=== PATIENT | female | born 1955 | race Caucasian/White ===

== ENCOUNTER 2016-05-29 20:09 | Emergency (ER) | payer MEDICAID, OTHER ==
[~2016-05-29] VITALS: Ht 167.6 cm; Wt 65.8 kg
[2016-05-29 21:03] VITALS: BP 177/83
== END 2016-05-29 21:42 | disposition home or self-care (01) ==
LOC: ER 20:09
DX: J18.9 Pneumonia, unspecified organism (principal); Z76.0 Encounter for issue of repeat prescription; I25.10 Atherosclerotic heart disease of native coronary artery without angina pectoris; I10 Essential (primary) hypertension; E07.9 Disorder of thyroid, unspecified; Z88.0 Allergy status to penicillin; Z88.1 Allergy status to other antibiotic agents; Z91.041 Radiographic dye allergy status

== ENCOUNTER 2017-02-10 16:42 | Emergency (ER) | payer MEDICAID ==
[~2017-02-10] VITALS: Ht 167.6 cm; Wt 63.5 kg
[2017-02-10 19:15] VITALS: BP 191/104
== END 2017-02-10 20:57 | disposition home or self-care (01) ==
LOC: ER 16:43
DX: J40 Bronchitis, not specified as acute or chronic (principal)
CPT/HCPCS: 71020

== ENCOUNTER 2017-05-22 11:50 | Inpatient (IN) | payer MEDICAID ==
[2017-05-22] VITALS (11 sets, daily range): BP systolic 111–130; BP diastolic 54–72
[~2017-05-22] VITALS: Ht 167.6 cm; Wt 65.5 kg
[2017-05-22 12:52] LABS: Basophils # (auto) 0.1 uL; Eosinophils # (auto) 0.1 uL; Monocytes # (auto) 0.6 uL
[2017-05-22 12:54] LABS: Basophils % (auto) 0.6 % (0.0-2.0); Eosinophils % (auto) 0.5 % (0.0-7.0); Hematocrit 21.2 % (36.0-46.0); Lymphocytes # (auto) 1.3 uL; Lymphocytes % (auto) 9.7 % (10.0-50.0); Mean Corpuscular Hemoglobin 29.1 pg (28.0-32.0); Mean Corpuscular Hgb Conc. 32.1 g/dL (32.0-36.0); Mean Corpuscular Volume 90.6 fL (80.0-100.0); Monocytes % (auto) 4.5 % (0.0-12.0); Neutrophils % (auto) 84.7 % (37.0-80.0); Platelet Count (auto) 392 10^3/uL (140-450); Red Blood Cells 2.34 10^6/uL (4.0-5.20); Red Cell Distribution Width 14.4 % (11.8-14.3)
[2017-05-22 12:59] LABS: Albumin 2.9 g/dL (3.4-5.0); BUN/Creatinine Ratio 60.5; Bilirubin, Total 0.2 mg/dL (0.2-1.0); Calcium 7.4 mg/dL (8.5-10.1); Magnesium 2.3 mg/dL (1.6-2.6); Total Protein 5.4 g/dL (6.4-8.2)
[2017-05-22 13:25] LABS: Hemoglobin 6.8 g/dL (12.2-16.2)
[2017-05-22] MEDS ORDERED: SODIUM CHLORIDE 0.9% 1,000 ML IVB ONE (13:42)
[2017-05-22 14:08] LABS: Magnesium 2.1 mg/dL (1.6-2.6)
[2017-05-22 14:17] LABS: Urine Bacteria NONE SEEN /hpf (None Seen); Urine Blood Negative /uL (Negative); Urine Specific Gravity 1.016 (1.001-1.035); Urine WBC 1 /hpf (0 - 5)
[2017-05-22 14:21] LABS: INR 0.94 (0.9-1.15); Partial Thromboplastin Time 22.9 sec (22.64-33.71); Prothrombin Time 10.2 sec (9.37-12.3)
[2017-05-22] MEDS ORDERED: PANTOPRAZOLE 80 MG in SODIUM CHL 0.9% 60 ML IV ONE (15:30)
[2017-05-22] MEDS: SODIUM CHLORIDE 0.9% 1,000 ML IV SCH (15:55)
[2017-05-22] MEDS ORDERED: MORPHINE SULFATE 4 MG/ML SYR/VIAL IV PRN ×2 (16:00)
[2017-05-22] MEDS ORDERED: ACETAMINOPHEN 500 MG TAB PO PRN (16:00)
[2017-05-22] MEDS ORDERED: PROMETHAZINE HCL 25 MG/ML 1ML IV PRN (16:00)
[2017-05-22] MEDS ORDERED: LORazepam 0.5 MG TAB PO PRN (16:00)
[2017-05-22] MEDS ORDERED: PANTOPRAZOLE 40 MG/10 ML VIAL IV ONE (16:00)
[2017-05-22] MEDS ORDERED: LACTULOSE 20Gm/30ML SOLN PO PRN (16:00)
[2017-05-22] MEDS ORDERED: NITROGLYCERIN 0.4 MG SL TAB SL PRN (16:00)
[2017-05-22] MEDS ORDERED: HYDROcodone-ACET 5/325MG TAB PO PRN (16:00)
[2017-05-22] MEDS ORDERED: CEFOTETAN 1GM/D5W 50ML BAG 50 ML IV ONE (16:15)
[2017-05-22 17:15] LABS: CRP High Sensitivity 0.04 mg/dL (< 0.3)
[2017-05-22 20:55] LABS: Alcohol, Urine < 3.0 mg/dL (0-5); Amphetamine Screen, Urine POSITIVE (NEGATIVE); Barbiturate Scree,Urine NEGATIVE (NEGATIVE); Benzodiazephine Screen, Urine NEGATIVE (NEGATIVE); Cannabinoid Screen, Urine NEGATIVE (NEGATIVE); Cocaine Screen, Urine NEGATIVE (NEGATIVE); Opiate Scree,Urine NEGATIVE (NEGATIVE); Phencyclidine Screen, Urine NEGATIVE (NEGATIVE)
[2017-05-22 21:41] LABS: Basophils # (auto) 0.1 uL; Eosinophils # (auto) 0.2 uL; Hematocrit 24.6 % (36.0-46.0); Lymphocytes # (auto) 1.9 uL; Monocytes # (auto) 0.5 uL
[2017-05-22 21:42] LABS: Basophils % (auto) 1.3 % (0.0-2.0); Eosinophils % (auto) 2.3 % (0.0-7.0); Hemoglobin 8.1 g/dL (12.2-16.2); Lymphocytes % (auto) 20.8 % (10.0-50.0); Mean Corpuscular Hgb Conc. 33.2 g/dL (32.0-36.0); Mean Corpuscular Volume 90.4 fL (80.0-100.0); Monocytes % (auto) 6.2 % (0.0-12.0); Neutrophils # (auto) 6.2 uL; Neutrophils % (auto) 69.4 % (37.0-80.0); Nucleated Red Blood Cells % 0.1 %; Platelet Count (auto) 307 10^3/uL (140-450); Red Blood Cells 2.72 10^6/uL (4.0-5.20); Red Cell Distribution Width 14.5 % (11.8-14.3); White Blood Cell 8.9 10^3/uL (4.4-10.8)
[2017-05-22] MEDS: cefTRIAXone 1GM/10ml IVPUSH 10 ML IV SCH (21:51)
[2017-05-22] MEDS: PANTOPRAZOLE 40 MG TAB PO SCH (21:59)
[2017-05-22] MEDS ORDERED: PANTOPRAZOLE 40 MG TAB PO SCH (22:00)
[2017-05-23] MEDS: TEMAZEPAM 15 MG CAP PO PRN (00:04)
[2017-05-23] MEDS: SODIUM CHLORIDE 0.9% 1,000 ML IV SCH ×3 (00:06→16:24)
[2017-05-23 00:52] LABS: Hemoglobin 8.1 g/dL (12.2-16.2)
[2017-05-23 00:54] LABS: Hematocrit 24.3 % (36.0-46.0)
[2017-05-23] MEDS ORDERED: NAP500T PO (03:22)
[2017-05-23] MEDS ORDERED: ASPI-231 PO (03:22)
[2017-05-23] MEDS ORDERED: METO-169 PO (03:22)
[2017-05-23 05:51] LABS: Basophils # (auto) 0.1 uL; Lymphocytes # (auto) 1.9 uL; Mean Corpuscular Volume 89.6 fL (80.0-100.0); Monocytes # (auto) 0.5 uL; Monocytes % (auto) 6.8 % (0.0-12.0); Red Cell Distribution Width 14.3 % (11.8-14.3)
[2017-05-23 05:53] VITALS: BP 100/52
[2017-05-23 05:54] LABS: Basophils % (auto) 0.9 % (0.0-2.0); Eosinophils # (auto) 0.3 uL; Eosinophils % (auto) 3.9 % (0.0-7.0); Hematocrit 23.4 % (36.0-46.0); Lymphocytes % (auto) 27.1 % (10.0-50.0); Mean Corpuscular Hemoglobin 30.4 pg (28.0-32.0); Neutrophils # (auto) 4.2 uL; Neutrophils % (auto) 61.3 % (37.0-80.0); Nucleated Red Blood Cells % 0.1 %; Platelet Count (auto) 286 10^3/uL (140-450); Red Blood Cells 2.61 10^6/uL (4.0-5.20); White Blood Cell 6.8 10^3/uL (4.4-10.8)
[2017-05-23 09:00] VITALS: BP 105/60
[2017-05-23] MEDS: PANTOPRAZOLE 40 MG TAB PO SCH ×2 (09:48→20:50)
[2017-05-23] MEDS ORDERED: CEFOTETAN 1GM/D5W 50ML BAG 50 ML IV SCH (10:00)
[2017-05-23 10:35] LABS: Carcinoembryonic Antigen < 0.50 ng/mL (<5.0 OR =)
[2017-05-23 10:36] LABS: Folate (Folic Acid) 7.15 ng/mL (5.38-24)
[2017-05-23 13:00] VITALS: BP 114/61
[2017-05-23 17:20] VITALS: BP 110/64
[2017-05-23] MEDS: cefTRIAXone 1GM/10ml IVPUSH 10 ML IV SCH (20:50)
[2017-05-23 22:00] VITALS: BP 111/61
[2017-05-24] MEDS: TEMAZEPAM 15 MG CAP PO PRN (00:01)
[2017-05-24] MEDS: SODIUM CHLORIDE 0.9% 1,000 ML IV SCH ×4 (00:02→23:55)
[2017-05-24 05:00] VITALS: BP 130/87
[2017-05-24 05:53] LABS: Basophils # (auto) 0.1 uL; Eosinophils # (auto) 0.3 uL; Hemoglobin 7.9 g/dL (12.2-16.2); Lymphocytes # (auto) 1.6 uL; Neutrophils # (auto) 2.9 uL; Nucleated Red Blood Cells % 0.1 %; White Blood Cell 5.3 10^3/uL (4.4-10.8)
[2017-05-24 05:57] LABS: Basophils % (auto) 1.4 % (0.0-2.0); Eosinophils % (auto) 6.3 % (0.0-7.0); Hematocrit 23.7 % (36.0-46.0); Mean Corpuscular Hemoglobin 30.1 pg (28.0-32.0); Mean Corpuscular Hgb Conc. 33.4 g/dL (32.0-36.0); Mean Corpuscular Volume 90.2 fL (80.0-100.0); Monocytes # (auto) 0.4 uL; Monocytes % (auto) 8.3 % (0.0-12.0); Platelet Count (auto) 308 10^3/uL (140-450); Red Blood Cells 2.63 10^6/uL (4.0-5.20); Red Cell Distribution Width 14.7 % (11.8-14.3)
[2017-05-24 06:37] LABS: Albumin 2.3 g/dL (3.4-5.0); BUN/Creatinine Ratio 10.2; Bilirubin, Total 0.3 mg/dL (0.2-1.0); Calcium 7.2 mg/dL (8.5-10.1); Magnesium 2.3 mg/dL (1.6-2.6); Potassium 3.7 mmol/L (3.5-5.1); Total Protein 4.5 g/dL (6.4-8.2)
[2017-05-24] MEDS: PANTOPRAZOLE 40 MG TAB PO SCH ×2 (09:41→20:07)
[2017-05-24] MEDS ORDERED: LIDOCAINE VISCOUS 2% 15ML UD ONE (09:51)
[2017-05-24] MEDS ORDERED: fentaNYL CITRATE 100 MCG/2 ML VL ONE (09:52)
[2017-05-24] MEDS ORDERED: diphenhdrAMINE HCL 50 MG/1 ML VL ONE (09:52)
[2017-05-24] MEDS ORDERED: MIDAZOLAM HCL 5 MG/ML-1ML VIAL ONE (09:52)
[2017-05-24] MEDS ORDERED: FLUMAZENIL 0.1 MG/ML INJ 10ML MDV IV ONE (09:53)
[2017-05-24] MEDS ORDERED: NALOXONE HCL 0.4 MG/ML VIAL ONE (09:53)
[2017-05-24 17:08] VITALS: BP 121/57
[2017-05-24] MEDS: cefTRIAXone 1GM/10ml IVPUSH 10 ML IV SCH (20:12)
[2017-05-24 22:31] VITALS: BP 118/62
[2017-05-25] VITALS (8 sets, daily range): BP systolic 123–137; BP diastolic 61–81
[2017-05-25 05:32] LABS: Basophils # (auto) 0.1 uL; Eosinophils # (auto) 0.3 uL; Hematocrit 26.2 % (36.0-46.0); Hemoglobin 8.6 g/dL (12.2-16.2); Lymphocytes # (auto) 1.5 uL; Lymphocytes % (auto) 22.4 % (10.0-50.0); Mean Corpuscular Hemoglobin 30.3 pg (28.0-32.0); Mean Corpuscular Hgb Conc. 32.7 g/dL (32.0-36.0); Mean Corpuscular Volume 92.5 fL (80.0-100.0); Monocytes # (auto) 0.7 uL; Monocytes % (auto) 9.9 % (0.0-12.0); Neutrophils # (auto) 4.1 uL; Neutrophils % (auto) 61.7 % (37.0-80.0); Nucleated Red Blood Cells % 0.1 %; Platelet Count (auto) 338 10^3/uL (140-450); Red Blood Cells 2.83 10^6/uL (4.0-5.20); Red Cell Distribution Width 15.3 % (11.8-14.3); White Blood Cell 6.6 10^3/uL (4.4-10.8)
[2017-05-25 06:09] LABS: Albumin 2.4 g/dL (3.4-5.0); BUN/Creatinine Ratio 12.5; Bilirubin, Total 0.2 mg/dL (0.2-1.0); Calcium 7.5 mg/dL (8.5-10.1); Potassium 4.1 mmol/L (3.5-5.1); Total Protein 4.9 g/dL (6.4-8.2)
[2017-05-25] MEDS ORDERED: MORPHINE SULFATE 4 MG/ML SYR/VIAL IV PRN (09:45)
[2017-05-25] MEDS: PANTOPRAZOLE 40 MG TAB PO SCH ×2 (10:26→21:59)
[2017-05-25] MEDS: SODIUM CHLORIDE 0.9% 1,000 ML IV SCH ×3 (10:26→23:55)
[2017-05-25] MEDS: cefTRIAXone 1GM/10ml IVPUSH 10 ML IV SCH (21:59)
[2017-05-25] MEDS: TEMAZEPAM 15 MG CAP PO PRN (21:59)
[2017-05-26 05:25] VITALS: BP 137/74
[2017-05-26 05:42] LABS: Basophils # (auto) 0.1 uL; Basophils % (auto) 1.2 % (0.0-2.0); Eosinophils # (auto) 0.3 uL; Eosinophils % (auto) 5.6 % (0.0-7.0); Hematocrit 26.7 % (36.0-46.0); Lymphocytes # (auto) 1.3 uL; Lymphocytes % (auto) 27.2 % (10.0-50.0); Mean Corpuscular Hemoglobin 30.3 pg (28.0-32.0); Mean Corpuscular Hgb Conc. 33.9 g/dL (32.0-36.0); Mean Corpuscular Volume 89.5 fL (80.0-100.0); Monocytes # (auto) 0.4 uL; Monocytes % (auto) 9.1 % (0.0-12.0); Neutrophils # (auto) 2.8 uL; Neutrophils % (auto) 56.9 % (37.0-80.0); Nucleated Red Blood Cells % 0.1 %; Platelet Count (auto) 349 10^3/uL (140-450); Red Blood Cells 2.98 10^6/uL (4.0-5.20); Red Cell Distribution Width 14.6 % (11.8-14.3); White Blood Cell 4.9 10^3/uL (4.4-10.8)
[2017-05-26 05:57] LABS: Albumin 2.5 g/dL (3.4-5.0); BUN/Creatinine Ratio 10.9; Calcium 8.1 mg/dL (8.5-10.1); Potassium 3.5 mmol/L (3.5-5.1)
[2017-05-26 06:00] LABS: Bilirubin, Total 0.2 mg/dL (0.2-1.0); Total Protein 5.1 g/dL (6.4-8.2)
[2017-05-26 09:00] VITALS: BP 130/86
[2017-05-26] MEDS: SODIUM CHLORIDE 0.9% 1,000 ML IV SCH (09:44)
[2017-05-26] MEDS: PANTOPRAZOLE 40 MG TAB PO SCH (09:44)
== END 2017-05-26 13:31 | disposition home or self-care (01) | DRG 241 ==
LOC: EDBD 11:50 → EDUNIT# 11:50 → ER 11:50 → OVERFLOW 11:51 → WEST WING 22:50 → TELE-WESTW 05-23 05:42
PROVIDERS: ADMIT Internal Medicine; ATTEND Internal Medicine
PROC: 30233N1 Transfusion of Nonautologous Red Blood Cells into Peripheral Vein, Percutaneous Approach (ICD-10-PCS; 2017-05-22)
PROC: 0DB68ZX Excision of Stomach, Via Natural or Artificial Opening Endoscopic, Diagnostic (ICD-10-PCS; principal; 2017-05-24 11:45)
DX: K29.71 Gastritis, unspecified, with bleeding (principal); E44.0 Moderate protein-calorie malnutrition; K57.31 Diverticulosis of large intestine without perforation or abscess with bleeding; D62 Acute posthemorrhagic anemia; E03.9 Hypothyroidism, unspecified; I10 Essential (primary) hypertension; K25.4 Chronic or unspecified gastric ulcer with hemorrhage; I25.10 Atherosclerotic heart disease of native coronary artery without angina pectoris; I73.9 Peripheral vascular disease, unspecified; Z79.82 Long term (current) use of aspirin; I25.2 Old myocardial infarction; Z80.0 Family history of malignant neoplasm of digestive organs; Z87.11 Personal history of peptic ulcer disease; Z68.23 Body mass index [BMI] 23.0-23.9, adult
CPT/HCPCS: 36415; 36430; 43239; 70450; 71045; 74176; 80053; 80307; 81001; 82150; 82378; 82550; 82607; 82746; 83690; 83735; 84443; 85014; 85018; 85025; 85045; 85610; 85652; 85730; 86141; 86850; 86900; 86901; 86920; 87081; 93005; 93306; 96361; 96374; C9113; J2250